=== PATIENT | male | born 1945 | race Caucasian/White ===

== ENCOUNTER → 2022-06-05 14:57 | Outpatient (BNVA) | payer MEDICARE, SELFPAY | PROVIDERS: Referring Provider Family Medicine; Visit Provider Specialist | DX: S62.511A Displaced fracture of proximal phalanx of right thumb, initial encounter for closed fracture (principal); W17.89XA Other fall from one level to another, initial encounter | CPT/HCPCS: 73130 ==

== ENCOUNTER 2022-06-05 16:15 | Outpatient (CLI) | payer MEDICARE, SELFPAY | END 2022-06-05 16:16 | disposition home or self-care (01) | LOC: SPT 16:15 | PROVIDERS: Visit Provider Specialist | DX: Z46.89 Encounter for fitting and adjustment of other specified devices (principal); S62.511A Displaced fracture of proximal phalanx of right thumb, initial encounter for closed fracture; W17.89XA Other fall from one level to another, initial encounter | CPT/HCPCS: 26720; 97760; 99203; L3984 ==

== ENCOUNTER → 2022-06-21 10:43 | Outpatient (BNVA) | payer MEDICARE, SELFPAY | PROVIDERS: Visit Provider Nurse Practitioner Family | DX: S62.511A Displaced fracture of proximal phalanx of right thumb, initial encounter for closed fracture (principal); W17.89XA Other fall from one level to another, initial encounter | CPT/HCPCS: 73130; 99213 ==

== ENCOUNTER → 2022-07-16 12:58 | Outpatient (BNVA) | payer MEDICARE, OTHER, SELFPAY | PROVIDERS: Visit Provider Nurse Practitioner Family | DX: S62.511A Displaced fracture of proximal phalanx of right thumb, initial encounter for closed fracture (principal); W17.89XA Other fall from one level to another, initial encounter | CPT/HCPCS: 73130; 99213 ==